=== PATIENT | male | born 2005 | race Caucasian/White ===

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

== ENCOUNTER 2025-01-05 07:54 | Outpatient (CLI) | payer OTHER, SELFPAY ==
[2025-01-05 09:17] LABS: Thyroid Stimulating Hormone 9.09 uIU/mL (0.465-4.68)
== END 2025-01-05 23:59 | disposition home or self-care (01) ==
PROVIDERS: Visit Provider Nurse Practitioner Acute Care
DX: F40.10 Social phobia, unspecified (principal)
CPT/HCPCS: 36415; 84439; 84443

== ENCOUNTER 2025-01-18 09:05 | Outpatient (CLI) | payer OTHER, SELFPAY ==
--- NOTE | 2025-01-18 09:21 | US_ITS ---
FINAL REPORT TECHNIQUE: Sonographic images of the thyroid gland were obtained in the longitudinal and transverse planes. CLINICAL HISTORY: hypothyroid, goiter COMPARISON: None FINDINGS: The right lobe measures 1.6 x 5.3 x 1.3 cm. The right lobe is diffusely heterogeneous and hyperemic. There is a 7 mm TR 4 nodule in the posterior mid gland. The left lobe measures 1.8 x 5.5 x 1.6 cm. The left lobe is heterogeneous and hyperemic. There is a mixed cystic and solid 8 mm nodule in the upper pole of the left gland. The isthmus measures 5 mm. This is normal. IMPRESSION: Heterogeneous and hyperemic thyroid favored to represent thyroiditis. Subcentimeter TR 4 right nodule with no current recommendations for follow-up based on small size per TI-RADS criteria. Subcentimeter TR 3 left nodule. No current recommendations for follow-up based on small size per TI-RADS criteria. Reviewed, Interpreted and Dictated by Emily Herrera MD Transcribed by Aruna Greene Authenticated and [facility]
[2025-01-18 09:53] LABS: Eosinophils # 0.2 K/mm3 (0.0-0.4); Monocytes # 0.7 K/mm3 (0.1-1.0)
[2025-01-18 10:08] LABS: Basophils % 0.5 % (0.1-2.0); Eosinophils % 2.4 % (0.1-12.0); Lymphocytes # 2.5 K/mm3 (0.7-4.5); Red Cell Distribution Width 13.3 % (11.5-17.5)
[2025-01-18 10:13] LABS: Hematocrit 45.5 % (42.0-52.0); Hemoglobin 15.2 g/dL (14.1-18.0); Lymphocytes % 28.6 % (10-50); Mean Corpuscular HGB Conc 33.4 g/dL (31.8-35.4); Mean Corpuscular Hemoglobin 28.1 pg (27.0-31.2); Mean Corpuscular Volume 84.1 fl (80-94); Mean Platelet Volume 10.1 fl (7.4-10.4); Monocytes % 8.4 % (1.7-9.3); Neutrophils # 5.2 K/mm3 (1.8-7.8); Neutrophils % 59.6 % (37.0-80.0); Platelet Count 384 K/mm3 (142-424); Red Blood Count 5.41 M/mm3 (4.60-6.20); White Blood Count 8.7 K/mm3 (4.5-13.0)
[2025-01-18 10:27] LABS: Alanine Aminotransferase 21 U/L (12-78); Albumin Level 5.2 g/dl (3.5-5.0); Albumin/Globulin Ratio 2.4 (1.1-1.8); Alkaline Phosphatase 67 U/L (38-126); Anion Gap 13.5 mEq/L (5-15); Aspartate Amino Transferase 25 U/L (17-59); Bilirubin,Total 0.4 mg/dl (0.2-1.3); Blood Urea Nitrogen 16 mg/dl (9-20); Calcium 9.7 mg/dl (8.4-10.2); Carbon Dioxide 27 mmol/L (22.0-30.0); Chloride 103 mmol/L (98-107); Estimated Glomerular Filt Rate 145 ml/min (>60); GFR (African American) 176 ML/MIN (>60); Globulin 2.2 g/dL (1.3-3.2); Glucose 114 mg/dl (74-100); Potassium 4.5 mmoL/L (3.5-5.1); Sodium 139 mmol/L (136-145); Total Protein,Serum 7.4 g/dl (6.3-8.2)
[2025-01-19 08:13] LABS: Thyroid Peroxidase Antibodies 210 IU/mL (0-26)
== END 2025-01-18 23:59 | disposition home or self-care (01) ==
LOC: RAD 09:06
PROVIDERS: PCP Family Medicine; Visit Provider Family Medicine
DX: E03.9 Hypothyroidism, unspecified (principal); E04.9 Nontoxic goiter, unspecified; F98.8 Other specified behavioral and emotional disorders with onset usually occurring in childhood and adolescence
CPT/HCPCS: 36415; 76536; 80053; 85025; 86376

== ENCOUNTER 2025-02-10 09:29 | Emergency (ER) | payer OTHER, SELFPAY ==
--- NOTE | 2025-02-10 09:31 | ECG_ITS ---
APPROVED REPORT Exam: Resting ECG HR:105 bpm ECG Measurements Heart Rate 105 AXES GA 141 P 73 QRSd 100 QRS 49 QT 336 T 48 QTc 397 Conclusion SINUS TACHYCARDIA POSSIBLE LEFT ATRIAL ENLARGEMENT [-0.1mV P-WAVE IN V1/V2] ABNORMAL RHYTHM ECG Electronically signed by : FANY RAMIREZ, 02/11/2025 10:29:09
[2025-02-10 09:34] VITALS: BP 139/92; PULSE 106; PULSE 117; RESP 15; RESP 20; TEMP 36.9; O2SAT 100; BMI 18.8
[2025-02-10 09:36] VITALS: PULSE 105
--- NOTE | 2025-02-10 09:39 | HMH.EDGENADL ---
Discharge Plan Disposition Patient Disposition: Home, Self-Care Condition: Good Prescriptions Prescriptions: No Action dextroamphetamine-amphetamine [Adderall] 20 mg tablet 20 mg PO DAILY Qty: 30 0RF levothyroxine 25 mcg tablet 25 mcg PO DAILY Qty: 30 2RF Referrals Follow up/Referrals: Edwardo Rodriguez MD [Primary Care Provider] - See instructions Activity Restrictions/Add. Instructions Additional Instructions/Restrictions: As we discussed, your thyroid studies and the rest your labs are within normal limits. Please make sure you are eating and staying hydrated and follow-up with your prescriber to discuss any medication changes. I would recommend you do not resume the Adderall until you speak with them. Please return with any new or worsening symptoms Clinical Impressions Clinical Impression: Stimulant intoxication Stand Alone Forms Stand Alone Forms: Work/School Release Print Language Print Language: Citizen Of [place] Discharge ED Provider: Berhane Robison Adult HPI General Chief complaint: Chest Pain Stated complaint: Chest Pain Time Seen by Provider: 02/10/25 09:39 Mode of Arrival: Ambulatory Source of Information: Patient Description of Symptoms (Recalled from ER Triage Doc. by RN): pt took an adderall 20mg for the first time this morning. started having chest pain approx 20 minutes after. History of Present Illness HPI narrative: Patient presents for evaluation of tachycardia and anxiety after initiating Adderall 20 mg prescribed by PCP for the first time today. He was previously on different medication for ADHD however dose was increased based off of clinical concerns related to ADHD. Patient describes feeling of rapid heart rate. Denies any abnormal rhythms. Denies any palpitations syncope or presyncope. Denies any congestion. No previous therapies. Please note that above description of symptoms, in this electronic medical record under categorization of recalled from ER triage doctor by RN are reflective of an initial nursing assessment, however, is not reflective of my full history and physical exam that was personally taken and clarified. Consequentially, this preceding description of symptoms, which may include the patient's categorized chief complaint in the EMR, do not reflect my personal clinical impression, and the ultimate description of history of present illness and patient stated complaints should be deferred to this section of the note. Unless stated otherwise or congruent with this section of the note, additional signs, symptoms, or incongruence should be interpreted as inaccurate with my clinical impression. Related Data Previous Rx's ?Medication ?Instructions ?Recorded levothyroxine 25 mcg tablet 25 mcg PO DAILY #30 tabs 01/14/25 dextroamphetamine-amphetamine 20 20 mg PO DAILY #30 tabs 02/02/25 mg tablet (Adderall) Allergies Allergy/AdvReac Type Severity Reaction Status Date / Time Penicillins Allergy Verified 02/04/25 12:08 [facility] Disclaimer: The information contained in this section may have been updated after the patient was seen, as this information can be updated by other users. Medical History Social anxiety disorder Attention deficit disorder (ADD) Martha's thyroiditis (~12/2024) Hypothyroid (~12/2024) No significant medical problems Surgical History No pertinent past surgical history Family History Mother Hypothyroid Social History Smoking Status: Never smoker alcohol intake: never substance use type: denies use current occupational status: student Travel in the last 8 weeks: None household members: family housing: house Have you lived/traveled outside US in past 30 days?: No Contact w/someone who lives/traveled outside US past 30 days?: No Exposure to someone with infectious disease in past 14 days?: No Do you have a fever (greater than 100.4 F or 38 C)?: No Have you tested positive for COVID-19: No Exposed to someone with COVID-19 in past 14 days?: No Do you have a sore throat?: No Do you have a cough?: No Do you have any weakness?: No Do you have any diarrhea?: No Are you experiencing any unusual bleeding?: No Do you have any muscle aches/pain?: No Do you have any abdominal pain?: No Are you experiencing loss of taste or smell?: No Other Medical History Have you received the Pneumonia Vaccine: No ROS Obtained: Yes other As per HPI Physical Exam General General appearance: alert and in no apparent distress Head Head exam: atraumatic and normocephalic Eye Eye exam: Present normal appearance Neck Neck exam: Present normal inspection Chest Chest inspection: Present normal inspection and symmetric chest wall rise Respiratory Respiratory exam: Present normal lung sounds bilaterally; Absent respiratory distress Cardiovascular Cardiovascular exam: Present normal rhythm and tachycardia Abdominal Exam Abdominal exam: Present soft Neurological Exam Neurological exam: Present alert and oriented X3 Psychiatric Psychiatric exam: Present normal affect and normal mood Skin Skin exam: Present warm and dry Medical Decision Making Medical Records Medical records reviewed: Yes I reviewed the patient's medical records. Screening: Per USPSTF and CDC recommendations, given the prevalence of disease in our region, it is our hospital?s policy to screen for HIV and viral Hepatitis for all patients aged 18 and over and those with ongoing risk factors. Lavelle Inquiry Pt receiving controlled substance: No Vital Signs: 02/10/25 09:34 02/10/25 09:34 02/10/25 09:36 Temperature 98.4 F Temperature Source Oral Pulse Rate 117 H 105 H Pulse Rate [Right] 106 H Respiratory Rate 20 15 Blood Pressure Blood Pressure [Right Arm] 139/92 H Blood Pressure Mean [Right Arm] 107 02 Sat by Pulse Oximetry 100 100 Oxygen Delivery Method Room Air 02/10/25 10:00 02/10/25 10:30 02/10/25 11:09 Temperature 98.7 F Temperature Source Pulse Rate 107 H 96 H 104 H Pulse Rate [Right] Respiratory Rate 14 12 20 Blood Pressure 141/82 H 136/91 H Blood Pressure [Right Arm] Blood Pressure Mean [Right Arm] 02 Sat by Pulse Oximetry 100 100 Oxygen Delivery Method Lab Data Lab Results 02/10/25 09:39: WBC 8.8, RBC 5.24, Hgb 14.8, Hct 44.9, MCV 85.7, MCH 28.2, MCHC 33.0, RDW 13.3, Plt Count 374, MPV 9.7, Neut % (Auto) 64.2, Lymph % (Auto) 19.7, [place] % (Auto) 12.4 H, Eos % (Auto) 3.1, Baso % (Auto) 0.3, Neut # (Auto) 5.6, Lymph # (Auto) 1.7, [place] # (Auto) 1.1 H, Eos # (Auto) 0.3, Baso # (Auto) 0.0, Sodium 143, Potassium 3.6, Chloride 107, Carbon Dioxide 27, Anion Gap 12.6, BUN 15, Creatinine 0.70, Estimated Creat Clear 131, Estimated GFR 145, Est GFR ( Amer) 176, Glucose 100, Calcium 9.1, Total Bilirubin 0.4, AST 29, ALT 17, Alkaline Phosphatase 79, Total Protein 7.9, Albumin 5.1 H, Globulin 2.8, Albumin/Globulin Ratio 1.8, TSH 3.68, Free T4 1.17, HCV Ab ANNIE w/Rflx PCR Qn Negative, HIV Ag/Ab Combo Qual Negative 02/10/25 09:39 02/10/25 09:39 Orders (Tests/Meds): ED MEDICATIONS Discontinued Medications Generic Name Dose Route Start Last Admin Trade Name Freq PRN Reason Stop Dose Admin Lorazepam 0.25 mg 02/10/25 10:11 02/10/25 10:13 Lorazepam 2mg/Ml Vial IV 02/10/25 10:12 0.25 mg ONCE ONE Administration Lorazepam 0.25 mg 02/10/25 10:45 Lorazepam 2mg/Ml Vial IV 02/10/25 10:46 ONCE ONE Sodium Chloride 10 ml 02/10/25 10:11 Sodium Chloride 0.9% 10ml Vial IV 03/12/25 10:10 NEEDED PRN to Dilute Lorazepam inj Sodium Chloride 10 ml 02/10/25 10:45 Sodium Chloride 0.9% 10ml Vial IV 03/12/25 10:44 NEEDED PRN to Dilute Lorazepam inj ORDERS Category Date Time Status CBC w/Auto Diff [Complete Blood Count Auto Diff] Stat Lab 02/10/25 09:39 Completed CMP [Comprehensive Metabolic Panel] Stat Lab 02/10/25 09:39 Completed Free T4 (Free Thyroxine) Stat Lab 02/10/25 09:39 Completed HIV Combo Stat Lab 02/10/25 09:39 Completed Hepatitis C Ab Qual. W/ RFX Stat Lab 02/10/25 09:39 Completed TSH [Thyroid Stimulating Hormone] Stat Lab 02/10/25 09:39 Completed Medical Decision Narrative: Patient with history and exam per above presenting for evaluation of tachycardia and anxiety after initiation of Adderall 20 mg Diagnoses considered include medication side effect, low clinical index suspicion for ACS, PE, or coingestions ED workup and treatment included: ED MEDICATIONS Discontinued Medications Generic Name Dose Route Start Last Admin Trade Name Freq PRN Reason Stop Dose Admin Lorazepam 0.25 mg 02/10/25 10:11 02/10/25 10:13 Lorazepam 2mg/Ml Vial IV 02/10/25 10:12 0.25 mg ONCE ONE Administration Lorazepam 0.25 mg 02/10/25 10:45 Lorazepam 2mg/Ml Vial IV 02/10/25 10:46 ONCE ONE Sodium Chloride 10 ml 02/10/25 10:11 Sodium Chloride 0.9% 10ml Vial IV 03/12/25 10:10 NEEDED PRN to Dilute Lorazepam inj Sodium Chloride 10 ml 02/10/25 10:45 Sodium Chloride 0.9% 10ml Vial IV 03/12/25 10:44 NEEDED PRN to Dilute Lorazepam inj ORDERS Category Date Time Status CBC w/Auto Diff [Complete Blood Count Auto Diff] Stat Lab 02/10/25 09:39 Completed CMP [Comprehensive Metabolic Panel] Stat Lab 02/10/25 09:39 Completed Free T4 (Free Thyroxine) Stat Lab 02/10/25 09:39 Completed HIV Combo Stat Lab 02/10/25 09:39 Completed Hepatitis C Ab Qual. W/ RFX Stat Lab 02/10/25 09:39 Completed TSH [Thyroid Stimulating Hormone] Stat Lab 02/10/25 09:39 Completed Labs were independently interpreted by me, significant for no acute findings Patient reports symptoms improving upon repeat evaluation. He is stable for discharge at this time. I discussed my clinical impression with patient and answered all questions. At this time, the evidence for any other entities in the differential is insufficient to warrant any further testing or ED observation. This was explained to the patient. The patient was advised that persistent or worsening symptoms require further evaluation. Critical Care Critical Care Time Critical Care Time: No
[2025-02-10 09:52] LABS: Basophils % 0.3 % (0.1-2.0); Eosinophils # 0.3 K/mm3 (0.0-0.4); Eosinophils % 3.1 % (0.1-12.0); Hematocrit 44.9 % (42.0-52.0); Hemoglobin 14.8 g/dL (14.1-18.0); Lymphocytes # 1.7 K/mm3 (0.7-4.5); Lymphocytes % 19.7 % (10-50); Mean Corpuscular Hemoglobin 28.2 pg (27.0-31.2); Mean Corpuscular Volume 85.7 fl (80-94); Mean Platelet Volume 9.7 fl (7.4-10.4); Monocytes # 1.1 K/mm3 (0.1-1.0); Monocytes % 12.4 % (1.7-9.3); Neutrophils # 5.6 K/mm3 (1.8-7.8); Neutrophils % 64.2 % (37.0-80.0); Platelet Count 374 K/mm3 (142-424); Red Blood Count 5.24 M/mm3 (4.60-6.20); Red Cell Distribution Width 13.3 % (11.5-17.5); White Blood Count 8.8 K/mm3 (4.5-13.0)
[2025-02-10 10:00] VITALS: BP 141/82; PULSE 107; RESP 14; O2SAT 100
[2025-02-10 10:08] LABS: Alanine Aminotransferase 17 U/L (12-78); Albumin Level 5.1 g/dl (3.5-5.0); Albumin/Globulin Ratio 1.8 (1.1-1.8); Alkaline Phosphatase 79 U/L (38-126); Anion Gap 12.6 mEq/L (5-15); Aspartate Amino Transferase 29 U/L (17-59); Bilirubin,Total 0.4 mg/dl (0.2-1.3); Blood Urea Nitrogen 15 mg/dl (9-20); Calcium 9.1 mg/dl (8.4-10.2); Carbon Dioxide 27 mmol/L (22.0-30.0); Chloride 107 mmol/L (98-107); Creatinine Clearance Estimated 131 mL/min (50-200); Estimated Glomerular Filt Rate 145 ml/min (>60); GFR (African American) 176 ML/MIN (>60); Globulin 2.8 g/dL (1.3-3.2); Glucose 100 mg/dl (74-100); Potassium 3.6 mmoL/L (3.5-5.1); Sodium 143 mmol/L (136-145); Total Protein,Serum 7.9 g/dl (6.3-8.2)
[2025-02-10] MEDS: LORazepam 2MG/ML VIAL 0.25 MG IV (10:13)
[2025-02-10 10:30] VITALS: PULSE 96; RESP 12; O2SAT 100
--- NOTE | 2025-02-10 10:32 | PC.NURSE ---
pts mom is with him @ bedside. he is drinking water. he states he is starting to feel improvement after medication administration.
[2025-02-10 10:41] LABS: Thyroid Stimulating Hormone 3.68 uIU/mL (0.465-4.68)
--- NOTE | 2025-02-10 10:42 | PC.NURSE ---
DR GARCIA AT BEDSIDE
[2025-02-10 10:53] LABS: HIV Combo NEGATIVE (Negative)
[2025-02-10 11:00] LABS: Free T4 (Free Thyroxine) 1.17 ng/dl (0.78-2.19); Hepatitis C Ab Qual. W/ RFX NEGATIVE (Negative)
[2025-02-10 11:09] VITALS: BP 136/91; PULSE 104; RESP 20; TEMP 37.1; O2SAT 99
== END 2025-02-10 11:11 | disposition home or self-care (01) ==
PROVIDERS: Emergency Provider Emergency Medicine; PCP Family Medicine
DX: F15.929 Other stimulant use, unspecified with intoxication, unspecified (principal); R07.9 Chest pain, unspecified; R00.0 Tachycardia, unspecified; F41.9 Anxiety disorder, unspecified
CPT/HCPCS: 80053; 84439; 84443; 85025; 86803; 87389; 93005; 96374; 96376; 99283; J2060

== ENCOUNTER 2025-04-11 10:05 | Outpatient (CLI) | payer OTHER, SELFPAY ==
[2025-04-11 11:48] LABS: Thyroid Stimulating Hormone 3.43 uIU/mL (0.465-4.68)
== END 2025-04-11 23:59 | disposition home or self-care (01) ==
LOC: LAB 10:06
PROVIDERS: PCP Family Medicine; Visit Provider Family Medicine
DX: E03.9 Hypothyroidism, unspecified (principal)
CPT/HCPCS: 36415; 84439; 84443

== ENCOUNTER 2025-04-25 17:09 | Emergency (ER) | payer OTHER, SELFPAY ==
[2025-04-25 17:17] VITALS: BP 124/84; PULSE 110; RESP 20; TEMP 36.7; O2SAT 100; BMI 18.8
--- NOTE | 2025-04-25 17:33 | XR_ITS ---
PROCEDURE INFORMATION: Exam: XR Left Ankle Exam date and time: 04/25/2025 5:34 PM Age: 19 years old Clinical indication: Pain; Ankle; Left; Additional info: Lateral pain after inversion TECHNIQUE: Imaging protocol: Radiologic exam of the left ankle. Views: 3 or more views. COMPARISON: MR LOWER LEG LT WO CON 05/23/2023 12:51 PM FINDINGS: Bones/joints: No evidence of acute fracture or malalignment. Ankle mortise appears intact. Accessory os peroneum incidentally noted. Soft tissues: Soft tissue edema. IMPRESSION: No evidence of acute osseous abnormality in the left ankle.
--- NOTE | 2025-04-25 17:35 | ED_ITS ---
<Statement entered by Vanesa Restrepo DO - 04/25/25 20:52> I was consulted by the LISETTE, and we discussed the complexity of the problems being addressed. I approved the treatment and management plan for this patient's care in the emergency department, thus performing a substantive portion of the medical decision making. Vanesa Restrepo DO Discharge Plan Disposition Patient Disposition: Home, Self-Care Condition: Good Prescriptions Prescriptions: No Action atomoxetine [Strattera] 80 mg capsule 80 mg PO DAILY Qty: 30 2RF levothyroxine 25 mcg tablet 25 mcg PO DAILY Qty: 30 2RF Referrals Follow up/Referrals: Nathan Albrecht DO [Staff Physician] - See instructions Edwardo Rodriguez MD [Primary Care Provider] - See instructions Clinical Impressions Clinical Impression: Ankle sprain Instructions Patient Instructions: DI for Ankle Sprain Print Language Print Language: Georgian Discharge ED Provider: Vanesa Restrepo General Adult HPI General Chief complaint: Extremity Injury, Lower Stated complaint: AO 04/25/25 1650, fell, inj left ankle Time Seen by Provider: 04/25/25 17:14 Mode of Arrival: Ambulatory Source of Information: Patient Description of Symptoms (Recalled from ER Triage Doc. by RN): patient presents to ED with injury to his left ankle playing basketball. Patient rates pain 8/10, radiating up his left leg. Patient states he took 500mg of tylenol about 15 minutes ago. History of Present Illness HPI narrative: Patient presents with lateral left ankle pain. He reports that he was playing basketball and inverted his foot approximately 45 minutes prior to arrival. He has taken Tylenol and applied ice. He is unable to bear weight. He is unable to flex or extend as well. Denies any fevers or vomiting. complaint: Ankle pain Onset (ago): minute(s) Location: left and lower extremity Radiation: non-radiation Severity: severe Consistency: constant Relieving factors: none Exacerbating factors: movement Associated symptoms: negative fever/chills or nausea/vomiting Related Data Previous Rx's ?Medication ?Instructions ?Recorded atomoxetine 80 mg capsule 80 mg PO DAILY #30 caps 03/02/25 (Strattera) levothyroxine 25 mcg tablet 25 mcg PO DAILY #30 tabs 04/15/25 Allergies Allergy/AdvReac Type Severity Reaction Status Date / Time Penicillins Allergy Verified 02/04/25 12:08 [facility] Disclaimer: The information contained in this section may have been updated after the patient was seen, as this information can be updated by other users. Medical History Social anxiety disorder Attention deficit disorder (ADD) Martha's thyroiditis (~12/2024) Hypothyroid (~12/2024) No significant medical problems Surgical History No pertinent past surgical history Family History Mother Hypothyroid Social History Smoking Status: Never smoker alcohol intake: never substance use type: denies use current occupational status: student Travel in the last 8 weeks?: None household members: family housing: house Have you lived/traveled outside US in past 30 days?: No Contact w/someone who lives/traveled outside US past 30 days?: No Exposure to someone with infectious disease in past 14 days?: No Do you have a fever (greater than 100.4 F or 38 C)?: No Have you tested positive for COVID-19?: No Exposed to someone with COVID-19 in past 14 days?: No Do you have a sore throat?: No Do you have a cough?: No Do you have any weakness?: No Do you have any diarrhea?: No Are you experiencing any unusual bleeding?: No Do you have any muscle aches/pain?: No Do you have any abdominal pain?: No Are you experiencing loss of taste or smell?: No Other Medical History Have you received the Pneumonia Vaccine: No ROS Obtained: Yes Systems reviewed as appropriate & no additional complaints except as documented Physical Exam General General appearance: alert and in no apparent distress Head Head exam: atraumatic and normocephalic Eye Eye exam: Present normal appearance and EOMI Chest Chest inspection: Present symmetric chest wall rise Respiratory Respiratory exam: Present normal lung sounds bilaterally; Absent wheezes or stridor Cardiovascular Cardiovascular exam: Present regular rate and normal rhythm; Absent systolic murmur Extremities Exam Extremities exam: Present other Expanded Lower Extremity Exam Left: Foot/toe exam: Present tenderness (Lateral malleolus) and swelling (Over the lateral malleolus); Absent full ROM (Unable to dorsiflex or plantarflex) Neurovascular/Tendon exam: Present normal capillary refill and significant pain with passive ROM of distal joint; Absent sensory deficit or tendon deficit (Achilles intact) Neurological Exam Neurological exam: Present alert and oriented X3 Psychiatric Psychiatric exam: Present normal affect and normal mood Skin Skin exam: Present warm, dry and intact Medical Decision Making Medical Records Screening: Per USPSTF and CDC recommendations, given the prevalence of disease in our region, it is our hospital?s policy to screen for HIV and viral Hepatitis for all patients aged 18 and over and those with ongoing risk factors. Lavelle Inquiry Pt receiving controlled substance: No Vital Signs: 04/25/25 17:17 04/25/25 18:01 Temperature 98.0 F Temperature Source Oral Pulse Rate 97 H Pulse Rate [Right Brachial] 110 H Respiratory Rate 20 Blood Pressure 125/76 Blood Pressure [Right Arm] 124/84 Blood Pressure Mean [Right Arm] 97 Blood Pressure Source [Right Arm] Automatic Cuff Blood Pressure Position [Right Arm] Sitting 02 Sat by Pulse Oximetry 100 100 Oxygen Delivery Method Room Air Orders (Tests/Meds): ED MEDICATIONS Discontinued Medications Generic Name Dose Route Start Last Admin Trade Name Freq PRN Reason Stop Dose Admin Hydrocodone Bitart/Acetaminophen 1 tab 04/25/25 18:51 04/25/25 19:02 Hydrocodone/Apap 5/325 Mg Tablet PO 04/25/25 18:52 1 tab ONCE ONE Administration Ketorolac Tromethamine 60 mg 04/25/25 17:33 04/25/25 17:43 Ketorolac 60mg/2ml Vial IM 04/25/25 17:34 60 mg ONCE ONE Administration ORDERS Category Date Time Status Ankle XR - Left minimum 3 Views [XR ankle LT min 3V] Exams 04/25/25 17:33 Completed Stat Medical Decision Narrative: In summary patient is a 19-year-old male who presents the emergency department for evaluation of ankle pain. Patient is tachycardic upon arrival, afebrile. Lateral malleolus tenderness, edema, limited range of motion. Differential diagnosis includes fracture, sprain, dislocation. Initial workup will be conducted with x-ray. Initial inventions include Toradol. Initial workup reviewed by me x-ray negative for fracture. Upon repeat evaluation patient had slight improvement of pain. Given this patient is appropriate for discharge home with referral to orthopedics. Aircast placed in department. I reviewed the patient's ankle Xray and read as no acute fracture. Critical Care Critical Care Time Critical Care Time: No
[2025-04-25] MEDS: KETOROLAC 60MG/2ML VIAL 60 MG IM (17:43)
[2025-04-25 18:01] VITALS: BP 125/76; PULSE 97; O2SAT 100
[2025-04-25] MEDS: HYDROCODONE/APAP 5/325 MG TABLET 1 TAB PO (19:02)
[2025-04-25 19:10] VITALS: BP 118/78; PULSE 72; RESP 16; TEMP 36.9; O2SAT 100
== END 2025-04-25 19:21 | disposition home or self-care (01) ==
PROVIDERS: Emergency Provider Emergency Medicine; PCP Family Medicine
DX: M25.572 Pain in left ankle and joints of left foot (principal); S93.402A Sprain of unspecified ligament of left ankle, initial encounter; X50.1XXA Overexertion from prolonged static or awkward postures, initial encounter; Y93.67 Activity, basketball
CPT/HCPCS: 73610; 96372; 99283; J1885

== ENCOUNTER 2025-05-02 10:12 | Outpatient (CLI) | payer OTHER, SELFPAY ==
--- NOTE | 2025-05-02 10:14 | XR_ITS ---
FINAL REPORT CLINICAL HISTORY: quoc 1 week ago- playing ball, jumped, came down on it and fell COMPARISON: None FINDINGS: AP, oblique, and lateral views of the left ankle were obtained. There is no fracture or dislocation. The ankle mortise is intact. Mild lateral soft tissue swelling is noted. IMPRESSION: Mild lateral soft tissue swelling, with no acute osseous abnormality of the left ankle. Reviewed, Interpreted and Dictated by Emily Herrera MD Transcribed by Dominique Albrecht Authenticated and [facility]
== END 2025-05-02 23:59 | disposition home or self-care (01) ==
LOC: RAD 10:12
PROVIDERS: PCP Family Medicine; Visit Provider Physician Assistant Surgical
DX: S93.409A Sprain of unspecified ligament of unspecified ankle, initial encounter (principal); M79.89 Other specified soft tissue disorders
CPT/HCPCS: 73610

== ENCOUNTER 2025-05-16 09:50 | Outpatient (CLI) | payer OTHER, SELFPAY ==
--- NOTE | 2025-05-16 09:53 | XR_ITS ---
FINAL REPORT CLINICAL HISTORY: left ankle pain COMPARISON: 05/02/2025 FINDINGS: LEFT ANKLE Three views demonstrate no acute fracture or dislocation. The visualized joint spaces are normally aligned. The soft tissues are unremarkable. IMPRESSION: No acute bony abnormality. Reviewed, Interpreted and Dictated by Bertrand Park MD Transcribed by Aruna Greene Authenticated and . [facility]
== END 2025-05-16 23:59 | disposition home or self-care (01) ==
LOC: RAD 09:51
PROVIDERS: PCP Family Medicine; Visit Provider Orthopaedic Surgery
DX: M25.572 Pain in left ankle and joints of left foot (principal)
CPT/HCPCS: 73610

== ENCOUNTER 2025-11-03 17:05 | Outpatient (CLI) | payer OTHER, SELFPAY ==
--- NOTE | 2025-11-03 17:31 | XR_ITS ---
PROCEDURE INFORMATION: Exam: XR Chest Exam date and time: 11/03/2025 5:21 PM Age: 20 years old Clinical indication: Pain; Left-sided; Additional info: Chest wall pain TECHNIQUE: Imaging protocol: Radiologic exam of the chest. Views: 2 views. COMPARISON: No relevant prior studies available. FINDINGS: Lungs: Unremarkable. No consolidation. Pleural spaces: Unremarkable. No pleural effusion. No pneumothorax. Heart/Mediastinum: Unremarkable. No cardiomegaly. Bones/joints: Unremarkable. IMPRESSION: No acute findings.
[2025-11-03 18:20] LABS: Free T4 (Free Thyroxine) 0.95 ng/dl (0.78-2.19)
[2025-11-03 18:36] LABS: Thyroid Stimulating Hormone 7.48 uIU/mL (0.465-4.68)
== END 2025-11-03 23:59 | disposition home or self-care (01) ==
LOC: LAB 17:06
PROVIDERS: PCP Family Medicine; Visit Provider Family Medicine
DX: E03.9 Hypothyroidism, unspecified (principal); E06.3 Autoimmune thyroiditis; R07.89 Other chest pain
CPT/HCPCS: 36415; 71046; 84439; 84443